=== PATIENT | female | born 1985 | race Hispanic/Latino ===

== ENCOUNTER 2018-07-02 20:41 | Emergency (ER) | payer OTHER ==
[2018-07-02] MEDS ORDERED: LIDOCAINE HCL MPF 1% 5ML VIAL ONE (21:12)
[2018-07-02] MEDS ORDERED: BUPIVACAINE/PF 0.5% 30ML VIAL ONE (21:12)
== END 2018-07-02 21:45 | disposition home or self-care (01) ==
LOC: EDH 20:41
DX: L60.0 Ingrowing nail (principal); B35.1 Tinea unguium; Z91.018 Allergy to other foods
CPT/HCPCS: 11750; 99284; J3490 ×2

== ENCOUNTER 2018-07-04 12:43 | Emergency (ER) | payer SELFPAY | END 2018-07-04 13:57 | disposition home or self-care (01) | LOC: EDH 12:43 | DX: L03.032 Cellulitis of left toe (principal); Z72.0 Tobacco use; Z91.018 Allergy to other foods ==

== ENCOUNTER 2018-11-14 19:29 | Emergency (ER) | payer OTHER | END 2018-11-14 20:21 | disposition home or self-care (01) | LOC: EDH 19:29 | DX: N93.9 Abnormal uterine and vaginal bleeding, unspecified (principal) | CPT/HCPCS: 81025 ==

== ENCOUNTER 2019-04-10 20:36 | Emergency (ER) | payer OTHER ==
[2019-04-10] MEDS ORDERED: NITROGLYCERIN 1GM/1 INCH PACKET TD ONE (20:58)
[2019-04-10 21:53] LABS: BASOPHILS % (AUTO) 0.6 % (0.0-5.0); EOSINOPHILS % (AUTO) 2.4 % (0.0-8.0); HEMATOCRIT 37.1 % (36-48); LYMPHOCYTES % (AUTO) 19.7 % (21.0-51.0); MEAN CORPUSCULAR HEMOGLOBIN 27.2 pg (27.0-33.0); MEAN CORPUSCULAR HGB CONC 32.3 g/dL (32.0-36.0); MEAN CORPUSCULAR VOLUME 84.1 fL (79-99); MONOCYTES % (AUTO) 5.7 % (3.0-13.0); NEUTROPHILS % (AUTO) 71.6 % (40.0-77.0); NUCLEATED RED BLOOD CELLS 0.1 % (0.0-0.19); PLATELET COUNT (AUTO) 221 K/uL (130-400); RED BLOOD CELL COUNT(AUTO) 4.41 MIL/uL (4.00-5.50); RED CELL DISTRIBUTION WIDTH 14.3 % (11.0-15.5); WHITE BLOOD COUNT (AUTO) 16.2 K/uL (4.8-10.8)
[2019-04-10 21:59] LABS: AMPHET/METH SCREEN,URINE NEGATIVE (NEGATIVE); BARBITURATE SCREEN, URINE NEGATIVE (NEGATIVE); BENZODIAZEPINES SCREEN,URINE NEGATIVE (NEGATIVE); CANNABINOID SCREEN,URINE NEGATIVE (NEGATIVE); COCAINE SCREEN,URINE NEGATIVE (NEGATIVE); OPIATE SCREEN,URINE NEGATIVE (NEGATIVE); PHENCYCLIDINE SCREEN,URINE NEGATIVE (NEGATIVE)
[2019-04-10 22:00] LABS: HCG,QUAL RESULT NEGATIVE (NEGATIVE)
[2019-04-10 22:16] LABS: CREATININE 0.8 mg/dL (0.5-1.5); POTASSIUM 3.8 mmol/L (3.5-5.1)
== END 2019-04-10 22:50 | disposition home or self-care (01) ==
LOC: EDH 20:36
DX: R07.89 Other chest pain (principal); R00.2 Palpitations; Z72.0 Tobacco use
CPT/HCPCS: 36415; 71045; 80048; 80305; 81025; 84484; 85025; 93005

== ENCOUNTER 2019-11-23 22:18 | Emergency (ER) | payer MEDICAID ==
[2019-11-23 23:00] LABS: BASOPHILS % (AUTO) 0.4 % (0.0-5.0); HEMATOCRIT 32.3 % (36-48); MEAN CORPUSCULAR HEMOGLOBIN 27.9 pg (27.0-33.0); MEAN CORPUSCULAR HGB CONC 33.4 g/dL (32.0-36.0); MEAN CORPUSCULAR VOLUME 83.5 fL (79-99); MONOCYTES % (AUTO) 7.9 % (3.0-13.0); NEUTROPHILS % (AUTO) 71.3 % (40.0-77.0); PLATELET COUNT (AUTO) 166 K/uL (130-400); RED BLOOD CELL COUNT(AUTO) 3.87 MIL/uL (4.00-5.50); RED CELL DISTRIBUTION WIDTH 14.5 % (11.0-15.5); WHITE BLOOD COUNT (AUTO) 13.1 K/uL (4.8-10.8)
[2019-11-23 23:11] LABS: CREATININE 0.6 mg/dL (0.5-1.5); POTASSIUM 3.7 mmol/L (3.5-5.1)
[2019-11-23] MEDS ORDERED: SODIUM CHLORIDE 0.9% 1000ML 1,000 ML IV ONE (23:11)
[2019-11-23 23:25] LABS: APPEARANCE,URINE Clear (CLEAR); BILIRUBIN,URINE Negative (NEGATIVE); COLOR,URINE Yellow (YELLOW); GLUCOSE, URINE (UA) Negative (NEGATIVE); KETONES,URINE Negative (NEGATIVE); LEUKOCYTE ESTERASE ,URINE Small (NEGATIVE); NITRATE,URINE Negative (NEGATIVE); OCCULT BLOOD,URINE Large (NEGATIVE); PROTEIN,URINE Negative (NEGATIVE)
[2019-11-23 23:38] LABS: BACTERIA,URINE Few /HPF (None Seen); MUCUS,URINE Few LPF (None Seen); TRICHOMONAS,URINE Few /LPF (None Seen)
[2019-11-23 23:39] LABS: ALBUMIN 2.7 g/dL (3.5-5.0); BILIRUBIN,TOTAL 0.1 mg/dL (0.2-1.0); TOTAL PROTEIN, SERUM 6.7 g/dL (6.0-8.3)
[2019-11-24] MEDS ORDERED: METRONIDAZOLE 500 MG TABLET ONE (01:50)
== END 2019-11-24 02:20 | disposition home or self-care (01) ==
LOC: EDH 22:18
DX: O26.892 Other specified pregnancy related conditions, second trimester (principal); O20.0 Threatened abortion; A59.9 Trichomoniasis, unspecified; Z3A.17 17 weeks gestation of pregnancy; Z87.891 Personal history of nicotine dependence
CPT/HCPCS: 36415; 76805; 80053; 81001; 84702; 85025; 86900; 86901; 99285; J7030

== ENCOUNTER 2020-04-03 01:44 | Observation (INO) | payer MEDICAID ==
[~2020-04-03] VITALS: Ht 149.9 cm; Wt 104.8 kg
[2020-04-03 02:26] LABS: APPEARANCE,URINE Clear (CLEAR); BILIRUBIN,URINE Negative (NEGATIVE); COLOR,URINE Yellow (YELLOW); GLUCOSE, URINE (UA) >=1000 mg/dL (NEGATIVE); KETONES,URINE Negative (NEGATIVE); LEUKOCYTE ESTERASE ,URINE Negative (NEGATIVE); NITRATE,URINE Negative (NEGATIVE); OCCULT BLOOD,URINE Negative (NEGATIVE); PROTEIN,URINE Negative (NEGATIVE); UROBILINOGEN,URINE 0.2 mg/dL (0.2-1.0)
[2020-04-03 02:32] LABS: AMPHET/METH SCREEN,URINE NEGATIVE (NEGATIVE); BARBITURATE SCREEN, URINE NEGATIVE (NEGATIVE); BENZODIAZEPINES SCREEN,URINE NEGATIVE (NEGATIVE); CANNABINOID SCREEN,URINE NEGATIVE (NEGATIVE); COCAINE SCREEN,URINE NEGATIVE (NEGATIVE); OPIATE SCREEN,URINE NEGATIVE (NEGATIVE); PHENCYCLIDINE SCREEN,URINE NEGATIVE (NEGATIVE)
[2020-04-03 02:35] LABS: BACTERIA,URINE None Seen /HPF (None Seen); RBC,URINE None Seen /HPF (0-1); WBC,URINE None Seen /HPF (0-1); YEAST,URINE BUDDING None Seen /HPF (None Seen)
[2020-04-03 02:36] LABS: SQUAMOUS EPITHELIAL CELL,UR Few /HPF (0-2)
[2020-04-03] MEDS ORDERED: LACTATED RINGERS 1000ML 1,000 ML IV SCH (03:15)
[2020-04-03] MEDS ORDERED: TERBUTALINE SULFATE VIAL 1MG/ML SQ SCH (03:15)
[2020-04-03] MEDS ORDERED: LACTATED RINGERS 1000ML 1,000 ML IV ONE (03:21)
[2020-04-03] MEDS ORDERED: TERBUTALINE SULFATE VIAL 1MG/ML SQ ONE (03:21)
[2020-04-14] MEDS ORDERED: PREN1TAB80 PO (17:47)
== END 2020-04-03 08:35 | disposition home or self-care (01) ==
LOC: EDH 01:44 → LDH 01:58
PROVIDERS: ADMIT Obstetrics & Gynecology; ATTEND Obstetrics & Gynecology
DX: O60.03 Preterm labor without delivery, third trimester (principal); Z87.891 Personal history of nicotine dependence; Z3A.35 35 weeks gestation of pregnancy
CPT/HCPCS: 80305; 81001; 96360; 96372 ×2; 99284; G0378 ×7; J3105; J7120; 96374

== ENCOUNTER 2020-04-14 10:24 | Inpatient (IN) | payer MEDICAID ==
[~2020-04-14] VITALS: Ht 149.9 cm; Wt 103.4 kg
[2020-04-14] MEDS ORDERED: LACTATED RINGERS 1000ML 1,000 ML IV PRN (11:22)
[2020-04-14 11:29] VITALS: BP 136/65
[2020-04-14] MEDS ORDERED: AMPICILLIN 2GM+NS 100ML 100 ML IV SCH (11:30)
[2020-04-14] MEDS ORDERED: OXYTOCIN-LR 20 UNITS/1000 ML 1,000 ML IV SCH (11:30)
[2020-04-14] MEDS ORDERED: OXYTOCIN 10 USP UNITS/ML 20 UNIT in LACTATED RINGERS 1000ML 1,000 ML IV SCH (13:45)
[2020-04-14] MEDS ORDERED: PROPOFOL 10 MG/ML 20ML VIAL IV ONE (14:23)
[2020-04-14] MEDS ORDERED: CEFAZOLIN SODIUM 1 GM VIAL IVP PRN (14:30)
[2020-04-14] MEDS ORDERED: DURAMORPH PF1 MG/ML 10ML AMP IV ONE (14:49)
[2020-04-14] MEDS ORDERED: OXYTOCIN 10 UNIT/1ML 10ML VIAL ONE (14:49)
[2020-04-14] MEDS ORDERED: SODIUM CHLORIDE 0.9% 10 ML VIAL IVP PRN (15:30)
[2020-04-14] MEDS ORDERED: PROMETHAZINE HCL 25 MG/ML 1ML AMPULE IM PRN (15:30)
[2020-04-14] MEDS ORDERED: DEXTROSE 5 %-0.45 % NACL 1,000 ML IV PRN (15:30)
[2020-04-14] MEDS ORDERED: MEPERIDINE-PF 75 MG/ML SYG IM PRN (15:30)
[2020-04-14] MEDS ORDERED: OXYTOCIN-LR 20 UNITS/1000 ML 1,000 ML IV PRN (15:30)
[2020-04-14] MEDS ORDERED: AMPICILLIN 1GM+NS 50ML 50 ML IV SCH (16:00)
[2020-04-14] MEDS: IBUPROFEN 800 MG TAB PO SCH (17:00)
[2020-04-14] MEDS ORDERED: IBUPROFEN 800 MG TAB ONE (17:01)
[2020-04-14 17:30] VITALS: BP 118/70; PULSE 60; RESP 20; TEMP 97.5
[2020-04-14] MEDS ORDERED: DIPH,PERTUSS(ACELL),TET VAC/PF 0.5 ML VIAL IM ONE (19:15)
[2020-04-14 19:50] VITALS: BP 116/59; PULSE 75; RESP 20; TEMP 97.6
[2020-04-14 23:27] VITALS: BP 114/55; PULSE 84; RESP 18; TEMP 98.2
--- NOTE | 2020-04-14 23:30 | NUR ---
PHILLIP CARE DONE,SMALL RUBRA LOCHIA NOTED.
--- NOTE | 2020-04-14 23:35 | NUR ---
PT. STOOD UP AT BEDSIDE AND TOOK A FEW STEPS, WELL TOLERATED AND SAT UP IN CHAIR. DENIED DISCOMFORT.
--- NOTE | 2020-04-14 23:35 | NUR ---
PT SAT ON SIDE OF BED WITH ASSIST, WELL TOLERATED.
--- NOTE | 2020-04-14 23:45 | NUR ---
PT. SAT UP IN WC WITH ASSIST AND TAKEN TO NURSERY VIA WC TO GO VISIT HER BABY.
--- NOTE | 2020-04-15 00:17 | NUR ---
PT. BROUGHT BACK TO ROOM FROM [facility] VIA WC BY HER . OFFER TO ASSIST PT. BACK TO BED BUT SHE SAID SHE WOULD LIKE TO SIT UP IN CHAIR FOR A WHILE. INST PT AND SPOUSE TO CALL FOR ASSIST WHEN PT IS READY TO GO BACK TO BED, BOTH VERBALIZE UNDERSTANDING. DENIED PAIN AND DISCOMFORT.
[2020-04-15] MEDS: IBUPROFEN 800 MG TAB PO SCH ×3 (01:04→17:25)
--- NOTE | 2020-04-15 01:12 | NUR ---
PT. ASSISTED BACK IN BED. DENIED PAIN AND DISCOMFORT.
[2020-04-15 03:37] VITALS: BP 108/60; PULSE 85; RESP 20; TEMP 98.8
--- NOTE | 2020-04-15 06:00 | NUR ---
JOE SALGUERO, PT. INST TO CALL FOR ASSIST BEFORE GETTING OUT OF BED; VERBALIZED UNDERSTANDING. UNABLE TO GET BLOOD FOR CBC, LAB NOTIFIED AND SAID SOMEONE WILL COME DOWN TO DRAW LATER. Addendum: 04/15/20 at 0658 by KODAK GUILLEN RN RN Amended: Links added.
[2020-04-15] MEDS ORDERED: ACETAMINOPHEN EXTRA STRENGTH 500 MG TABLET PO PRN (08:30)
[2020-04-15] MEDS ORDERED: DIPH,PERTUSS(ACELL),TET VAC/PF 0.5 ML VIAL IM SCH (08:30)
[2020-04-15] MEDS ORDERED: LANOLIN 30GM OINTMENT TP PRN (08:30)
[2020-04-15] MEDS ORDERED: ACETAMINOPHEN-CODEINE 300/30MG TAB PO PRN (08:30)
[2020-04-15] MEDS ORDERED: BISACODYL 10 MG SUPP.RECT RC PRN (08:30)
[2020-04-15] MEDS: SIMETHICONE 80 MG TAB.CHEW PO PRN ×3 (08:48→22:40)
[2020-04-15] MEDS: DOCUSATE SODIUM 100 MG CAP PO SCH ×2 (08:48→22:40)
[2020-04-15 08:55] VITALS: BP 100/68; PULSE 86; RESP 18; TEMP 98.6
--- NOTE | 2020-04-15 10:30 | NUR ---
HX of Anxiety Sw met with pt and her common law Carlos Cooper 12/11/88, [phone]. This is first child together for couple daughter Heaven Cooper. Pt has 3 other sons 18 (lives on his own) 14 (lives with his father) 11yro lives with them in home they rent. Pt is independent has Medicaid WIC and food stamp assistance. works at [employer]. Couple has basic items for Tappr and car seat. Dr Doll will follow baby after dc. Good family support, mother Eunice Garner [phone]. Pt reports that she was dx with anxiety- panic attacks 1 yr ago by her PCP. Medication was rx, but pt only took for a short time and stopped herself. Pt denies any issues with anxiety or panic attacks since or during . Pt also denies hx of depression, post depression, ideations or suicide attempts. pt reports hx of cigarette smoking till Aug. pt refused resources offered for smoking or counseling Addendum: 04/15/20 at 1103 by RONNI PURCELL Amended: Links added.
[2020-04-15 11:17] VITALS: BP 114/62; PULSE 88; RESP 20; TEMP 98.5
[2020-04-15] MEDS ORDERED: IBUPROFEN 800 MG TAB PO SCH (15:30)
[2020-04-15 16:03] VITALS: BP 123/73; PULSE 106; RESP 20; TEMP 99.6
[2020-04-15] MEDS: HYDROCODONE/ACETAMINOPHEN 5/325 MG TAB PO PRN (18:23)
[2020-04-15 19:40] VITALS: BP 110/65; PULSE 105; RESP 20; TEMP 98.9
--- NOTE | 2020-04-15 20:45 | NUR ---
DULCOLAX SUPPOSITORY OFFERED , PATIENT DECLINED Addendum: 04/16/20 at 0430 by ROSITA ARROYO LVN Amended: Links added.
[2020-04-15 23:28] VITALS: BP 134/75; PULSE 91; RESP 20; TEMP 98.2
[2020-04-16] MEDS: HYDROCODONE/ACETAMINOPHEN 5/325 MG TAB PO PRN (00:30)
[2020-04-16] MEDS: IBUPROFEN 800 MG TAB PO SCH ×2 (01:32→09:23)
[2020-04-16 03:54] VITALS: BP 122/70; PULSE 86; RESP 20; TEMP 98.3
[2020-04-16 07:35] VITALS: BP 120/63; PULSE 77; RESP 18; TEMP 98.2
[2020-04-16] MEDS: DOCUSATE SODIUM 100 MG CAP PO SCH (09:22)
[2020-04-16] MEDS: SIMETHICONE 80 MG TAB.CHEW PO PRN (09:22)
--- NOTE | 2020-04-16 10:50 | NUR ---
verbal and written discharge instructions given, informed of the follow up appointment, prescription given. informed to call the doctor for any future concerns, pt voiced understanding to all things discussed. Addendum: 04/16/20 at 1105 by MONIKA OKEEFE RN Amended: Links added.
--- NOTE | 2020-04-16 11:05 | NUR ---
pt is dismissed in stable condition, brought to private car via wheelchair by Agatha Garcia pcp Addendum: 04/16/20 at 1107 by MONIKA OKEEFE RN Amended: Links added.
== END 2020-04-16 11:10 | disposition home or self-care (01) | DRG 540 ==
LOC: LDH 10:24 → OBSVTOIN 10:24 → LDH 10:25 → WSH 17:31
PROVIDERS: ADMIT Obstetrics & Gynecology; ATTEND Obstetrics & Gynecology
PROC: 10D00Z1 Extraction of Products of Conception, Low, Open Approach (ICD-10-PCS; principal; 2020-04-14)
DX: O35.8XX0 Maternal care for other (suspected) fetal abnormality and damage, not applicable or unspecified (principal); O99.824 Streptococcus B carrier state complicating childbirth; Z37.0 Single live birth; Z3A.37 37 weeks gestation of pregnancy